=== PATIENT | female | born 1975 | race Caucasian/White ===

== ENCOUNTER 2017-02-21 14:17 | Emergency (ER) | payer SELFPAY ==
[2017-02-21 14:23] VITALS: BP 146/102
[2017-02-21] MEDS ORDERED: KETOROLAC TROMETHAMINE 60 MG/2 ML VIAL IM ONE (14:46)
--- NOTE | 2017-02-21 14:54 | ERNOTE ---
ENT HPI Date of Service: 02/21/17 Presenting Symptoms: dental pain Time Seen by Provider: 02/21/17 14:41 - Immun/Allergies/Home Medications Immunizations: IMMUNIZATION HX Immunizations Up to Date Yes History of Influenza Vaccine More Information Required Hx Pneumococcal Vaccination More Information Required Allergies/Adverse Reactions: Allergies Allergy/AdvReac Type Severity Reaction Status Date / Time clindamycin Allergy Verified 02/21/17 14:22 Home Medications: HOME MEDICATIONS Amitriptyline HCl [Elavil] 50 mg PO HS 09/17/15 [Last Taken Unknown] Atenolol [Tenormin] 100 mg PO DAILY 02/21/17 [Last Taken Unknown] Duloxetine HCl [Cymbalta] 60 mg PO DAILY 02/21/17 [Last Taken Unknown] Penicillin V Potassium [Pen-Vee K] 500 mg PO QID #40 tab 02/21/17 [Last Taken Unknown] amLODIPine BESYLATE [Norvasc] 5 mg PO DAILY 02/21/17 [Last Taken Unknown] oxyCODONE HCL/ACETAMINOPHEN [Percocet 5 MG/325 MG] 1 tab PO Q4H PRN #20 tab 01/03 [Last Taken Unknown] - History of Present Illness Narrative: Pt. comes in with c/o dental filling falling out last week and then the tooth started to hurt today when she was in air conditioning. Pt. states that she sought treatment from her dentist but they are not able to get her in until March. Pt. denies any fever, SOB, CP, NVD, but does state that she has not been able to eat or drink as much. Review of Systems - Review of Systems Constitutional: Present: no symptoms reported. Absent: recent illness, fever, chills, weakness, fatigue EYE: Present: no symptoms reported ENT: Present: other - dental pain R maxilla Respiratory: Present: no symptoms reported. Absent: shortness of breath, cough , wheezing Cardiology: Present: no symptoms reported. Absent: chest pain, palpitations, edema Gastrointestinal/Abdominal: Present: no symptoms reported Musculoskeletal: Present: no symptoms reported. Absent: back pain, joint pain Skin: Present: no symptoms reported Neurological: Present: no symptoms reported. Absent: headache, dizziness/light- headedness, numbness, tingling All Other Systems: All systems neg except as marked - Patient's Past Medical History Patient History - Medical: Chronic Pain Patient History - Cardiac/Respiratory: No pertinent hx Patient History - Cancer: No Hx of Cancer Patient History - Surgical Procedures: Back Surgery, , T & A Patient History - Other: None - Social History Living Situations: home Abuse History: No History of abuse Psych History: No pertinent hx Smoking Status: Current every day smoker Have you smoked in the past 12 months: Yes Alcohol Use: none Drug Use: none - Immunizations Immunizations Up to Date: Yes Hx Pneumococcal Vaccination: More Information Required to Determine History of Influenza Vaccine: More Information Required to Determine Physical Exam - Physical Exam General Appearance: Present: wd/wn, alert, no apparent distress Eye Exam: Normal inspection: bilateral, PERRL: bilateral, EOMI: bilateral Ears, Nose, Throat: Present: normal pharynx, other - R maxillary dental material loss Neck: Present: normal inspection, nontender. Absent: lymphadenopathy (R), lymphadenopathy (L) Respiratory: Present: no respiratory distress, normal breath sounds, no accessory muscle use, chest nontender, lungs clear Cardiovascular/Chest: Present: regular rate, rhythm, no murmur, normal peripheral pulses Back Exam: Present: normal inspection Extremity Exam: Present: normal inspection Neurological Exam: Present: alert, oriented, normal mood/affect, no motor/ sensory deficits Skin Exam: Present: normal color, warm/dry. Absent: pallor, skin rash ED Progress - Vital Signs Patient's Vital Signs:: I have reviewed the patient's vital signs. Vital Signs: Vital Signs 02/21/17 14:20 Temperature 36.4 C L Pulse Rate 116 H Respiratory 14 Rate Blood Pressure 146/102 O2 Sat by Pulse 99 Oximetry - Progress/Reassessment Chief Complaint: Dental Problem Departure Clinical Impression: Dental filling status, Fractured dental episcopal with loss of material - Departure Disposition: Home self-care Condition: Good Instructions: Dental Caries, [id number], Form - Excuse from Work, School, or Physical Activity Additional Instructions: Please follow up with dentist as directed arrive at 8 am tomorrow please take Ibuprofen up to 600mg every 6 hours as needed May take percocet if at home and able to rest. Prescriptions: Penicillin V Potassium [Pen-Vee K] 500 mg PO QID #40 tab oxyCODONE HCL/ACETAMINOPHEN [Percocet 5 MG/325 MG] 1 tab PO Q4H PRN #20 tab PRN Reason: Pain
--- OUTSIDE RECORDS SUMMARY | 2017-02-21 14:56 | XMS REPORT | Continuity of Care Document ---
:1975 Author Organization [facility] [place] [address] Care Team Providers Name Role Phone Kyara Garcia Robyn Primary Care Provider [phone] Source Comments This disclosure is being made pursuant to the [email or web address] program and maynot contain all information available regarding this patient.[facility] Active Allergies and Adverse Reactions Allergen Noted Date Severity Reactions Comments Clindamycin 12/26/2016 Headache Headaches and GI upset Tramadol 12/26/2016 Low Rash Current Medications Be aware that medications may not be up to date as of this document. Alwaysverify current medications with the patient. Prescription Sig. Disp. Refills Start Date End Date Status amLODIPine (NORVASC) 5 Take 5 mg by 11/27/2016 Active MG tablet mouth daily. hydrOXYzine (VISTARIL) Take 1 capsule 0 12/09/2016 Active 50 MG capsule by mouth nightly. amitriptyline (ELAVIL) Take 1 tablet by 1 12/09/2016 Active 50 MG tablet mouth nightly. ketorolac (TORADOL) 10 Take 10 mg by Active MG tablet mouth every 6 (six) hours as needed for Pain. cyclobenzaprine Take 10 mg by Active (FLEXERIL) 10 MG tablet mouth nightly as needed for Muscle spasms. acetaminophen-codeine Take 1 tablet by 0 11/22/2016 Active (TYLENOL #3) 300-30 MG mouth 2 (two) per tablet times daily. atenolol (TENORMIN) 100 Take 1 tablet by 30 tablet 1 12/26/2016 Active MG tablet mouth daily. 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 (Primary Dx); Essential hypertension 12/26/2016 Refill Family Medicine Schrepfer, Jenn, RN Social History Tobacco Use Types Packs/Day Years Used Date Current Every Day Smoker 0.25 Alcohol Use Drinks/Week oz/Week Comments Yes occ Last Filed Vital Signs Vital Sign Reading Time Taken Blood Pressure 154/102 12/26/2016 10:04 AM CDT Pulse 98 12/26/2016 10:04 AM CDT Temperature - - Respiratory Rate 16 12/26/2016 10:04 AM CDT Height - - Weight 99.338 kg (219 lb) 12/26/2016 10:04 AM CDT Body Mass Index - - Oxygen Saturation 98% 12/26/2016 10:04 AM CDT Plan of Care Patient Goal Type Goal Blood Pressure Blood Pressure below 140/90 Health Maintenance Due Date Last Done Comments Pneumococcal Medium Risk 19-64 yo (1 of 1 - PPSV23) 1996 Tetanus/Pertussis (1 - Tdap) 1996 Pap Smear 1998 Influenza Immunization (#1) 2016 Results from Last 3 Months XR HIP UNILAT 2/3 VIEWS W OR WO PELVIS (12/25/2016)XR LSPINE 3 VIEWS (12/25/2016 ) Insurance Payer Benefit Plan / Subscriber ID Type Phone Address Group [facility] [id number] Managed [phone] [address] [place], [place] [address] [phone] CALI Barcenas [id number]
== END 2017-02-21 15:07 | disposition home or self-care (01) ==
LOC: ER 14:17
DX: K08.531 Fractured dental restorative material with loss of material (principal)

== ENCOUNTER 2017-03-06 17:11 | Emergency (ER) | payer SELFPAY ==
[2017-03-06 17:17] VITALS: BP 134/84
--- NOTE | 2017-03-06 17:42 | ERNOTE ---
ENT HPI Date of Service: 03/06/17 Presenting Symptoms: dental pain Time Seen by Provider: 03/06/17 17:36 Source: patient - Immun/Allergies/Home Medications Immunizations: IMMUNIZATION HX Immunizations Up to Date Yes History of Influenza Vaccine Yes Hx Pneumococcal Vaccination No Allergies/Adverse Reactions: Allergies Allergy/AdvReac Type Severity Reaction Status Date / Time clindamycin Allergy Verified 02/21/17 14:22 Home Medications: HOME MEDICATIONS Amitriptyline HCl [Elavil] 50 mg PO HS 09/17/15 [Last Taken Unknown] Atenolol [Tenormin] 100 mg PO DAILY 02/21/17 [Last Taken Unknown] Duloxetine HCl [Cymbalta] 60 mg PO DAILY 02/21/17 [Last Taken Unknown] amLODIPine BESYLATE [Norvasc] 5 mg PO DAILY 02/21/17 [Last Taken Unknown] Amoxicillin 875 mg PO BID #20 tablet 03/06/17 [Last Taken Unknown] HYDROcodone/ACETAMINOPHEN [Hydrocodon-Acetaminophen 5-325] 1 - 2 tab PO Q6H PRN #20 tablet 03/06/17 [Last Taken Unknown] Lidocaine HCl [Lidocaine HCl Viscous 2%] 5 ml MM Q4H PRN #120 udc 03/06/17 [ Last Taken Unknown] - Pain Score Pain Score #1 Pain Score: 8 - History of Present Illness Narrative: 41yo, F, presents to ER with tooth pain to R. lower molar. Notes she was seen in early February for pain to the same tooth, started on abx and pain medication at that time. She followed up the next day with [facility] dental clinic, they recommended a root canal, which will take place in [place] "in March when students return". Today a piece of the tooth broke off while eating pistachios and now she is having increased pain. She has also noted a foul taste in her mouth today. Date (Duration): 03/06/17 Time (Timing): 08:00 ENT Location: Present: dental Modifying Factors - Worsens: Reports: other - eating, hot/cold liquids Associated Symptoms - ENT: Reports: tooth pain. Denies: fever, sore throat, drooling, nasal congestion/drainage, facial pain/swelling, jaw swelling Review of Systems - Review of Systems Constitutional: Absent: fever, chills, malaise ENT: Present: other - tooth pain. Absent: nose congestion, throat swelling Respiratory: Absent: shortness of breath Gastrointestinal/Abdominal: Absent: nausea, vomiting Skin: Absent: other - redness - Patient's Past Medical History Patient History - Medical: Chronic Pain Patient History - Cardiac/Respiratory: No pertinent hx Patient History - Cancer: No Hx of Cancer Patient History - Surgical Procedures: Back Surgery, , T & A Patient History - Other: None - Social History Living Situations: home Abuse History: No History of abuse Psych History: No pertinent hx Smoking Status: Current every day smoker Have you smoked in the past 12 months: Yes Patient requests Smoking Cessation Consult: No Alcohol Use: none Drug Use: none - Immunizations Immunizations Up to Date: Yes Hx Pneumococcal Vaccination: No History of Influenza Vaccine: Yes Physical Exam - Physical Exam General Appearance: Present: wd/wn, alert, no apparent distress Head Exam: Present: other - filling to #31 tooth broken below site of filling to lateral aspect of tooth, #30 broken to medial aspect, no fluctuance or erythema to gums. Absent: swelling - no facial swelling Neck: Present: nontender. Absent: lymphadenopathy (R), lymphadenopathy (L) Respiratory: Present: normal breath sounds, lungs clear. Absent: rales, rhonchi , wheezing Cardiovascular/Chest: Present: regular rate, rhythm, no murmur Skin Exam: Present: normal color, warm/dry ED Progress - Results and Orders Patient's Lab Results:: I have reviewed the patient's lab results. - Vital Signs Patient's Vital Signs:: I have reviewed the patient's vital signs. Vital Signs: Vital Signs 03/06/17 17:12 Temperature 36.5 C Pulse Rate 104 H Respiratory 14 Rate Blood Pressure 134/84 O2 Sat by Pulse 98 Oximetry - Progress/Reassessment Chief Complaint: Dental Problem Departure Clinical Impression: Pain, dental, Fractured dental religion with loss of material - Departure Disposition: Home self-care Condition: Good Instructions: Tooth Injuries, [id number] Additional Instructions: Avoid hot/cold foods and liquids as this may increase pain Follow up at [facility] tomorrow Prescriptions: Amoxicillin 875 mg PO BID #20 tablet HYDROcodone/ACETAMINOPHEN [Hydrocodon-Acetaminophen 5-325] 1 - 2 tab PO Q6H PRN #20 tablet PRN Reason: Pain Lidocaine HCl [Lidocaine HCl Viscous 2%] 5 ml MM Q4H PRN #120 udc PRN Reason: Pain
[2017-03-06] MEDS ORDERED: HYDROcodone/ACETAMINOPHEN 1 EACH TABLET PO ONE (17:48)
[2017-03-06] MEDS ORDERED: AMOX TR/POTASSIUM CLAVULANATE 875 MG TABLET PO ONE (17:48)
--- OUTSIDE RECORDS SUMMARY | 2017-03-06 17:53 | XMS REPORT | Continuity of Care Document ---
:1975 Author Organization [facility] Address [place] [address] Care Team Providers Name Role Phone Radha Kyara Carlson Primary Care Provider [phone] Source Comments This disclosure is being made pursuant to the [employer] program and maynot contain all information available regarding this patient.[facility] Active Allergies and Adverse Reactions Allergen Noted Date Severity Reactions Comments Clindamycin 12/26/2016 Headache Headaches and GI upset Tramadol 12/26/2016 Low Rash Current Medications Be aware that medications may not be up to date as of this document. Alwaysverify current medications with the patient. Prescription Sig. Disp. Refills Start Date End Date Status amLODIPine (NORVASC) Take 5 mg by 11/27/2016 Active 5 MG tablet mouth daily. hydrOXYzine Take 1 0 12/09/2016 Active (VISTARIL) 50 MG capsule by capsule mouth nightly. amitriptyline Take 1 tablet 1 12/09/2016 Active (ELAVIL) 50 MG tablet by mouth nightly. ketorolac (TORADOL) Take 10 mg by Active 10 MG tablet mouth every 6 (six) hours as needed for Pain. cyclobenzaprine Take 10 mg by Active (FLEXERIL) 10 MG mouth nightly tablet as needed for Muscle spasms. acetaminophen-codeine Take 1 tablet 0 11/22/2016 Active (TYLENOL #3) 300-30 by mouth 2 MG per tablet (two) times daily. atenolol (TENORMIN) TAKE ONE 30 tablet 3 02/27/2017 Active 100 MG tablet TABLET BY MOUTH ONCE DAILY atenolol (TENORMIN) Take 1 tablet 30 tablet 1 12/26/2016 Discontinued 100 MG tablet by mouth 7 daily. Active Problems No known active problems Most Recent Encounters Date Type Specialty Providers Description 02/24/2017 Refill Family Medicine Fadi Majano DO Essential hypertension 01/02/2017 Orders Only Provider, Not In System 12/26/2016 Office Visit Family Medicine Fadi Majano V, DO Chronic right- sided low back pain with right-sided sciatica (Primary Dx); Essential hypertension 12/26/2016 Refill Family Medicine Jenn Whitehead, RN Social History Tobacco Use Types Packs/Day [...] 1996 Pap Smear 1998 Influenza Immunization (#1) 2017 Results from Last 3 Months XR HIP UNILAT 2/3 VIEWS W OR WO PELVIS (12/25/2016)XR LSPINE 3 VIEWS (12/25/2016 ) Insurance Payer Benefit Plan / Subscriber ID Type Phone Address Group [facility] [id number] Managed [phone] [address] [place], [place] [id number] [phone] [place] [address]
[2017-03-06] MEDS ORDERED: AMOX TR/POTASSIUM CLAVULANATE 875 MG TABLET ONE (18:00)
[2017-03-06] MEDS ORDERED: HYDROcodone/ACETAMINOPHEN 1 EACH TABLET ONE (18:00)
[2017-03-06] MEDS ORDERED: LIDOCAINE HCL 20 ML UDC MM ONE (18:04)
== END 2017-03-06 18:25 | disposition home or self-care (01) ==
LOC: ER 17:11
DX: K08.531 Fractured dental restorative material with loss of material (principal); F17.210 Nicotine dependence, cigarettes, uncomplicated

== ENCOUNTER 2017-04-19 12:19 | Emergency (ER) | payer OTHER ==
[2017-04-19 12:44] VITALS: BP 139/107
[2017-04-19] MEDS ORDERED: LIDOCAINE HCL 20 ML UDC MM ONE (13:35)
--- NOTE | 2017-04-19 13:52 | ERNOTE ---
ENT HPI Date of Service: 04/19/17 Presenting Symptoms: dental pain Time Seen by Provider: 04/19/17 13:23 Source: patient, RN notes reviewed, other - [facility] Exam Limitations: no limitations - Immun/Allergies/Home Medications Immunizations: IMMUNIZATION HX Immunizations Up to Date Yes History of Influenza Vaccine No Hx Pneumococcal Vaccination No Allergies/Adverse Reactions: Allergies Allergy/AdvReac Type Severity Reaction Status Date / Time clindamycin Allergy Verified 04/19/17 12:44 Home Medications: HOME MEDICATIONS Amitriptyline HCl [Elavil] 50 mg PO HS 09/17/15 [Last Taken Unknown] Atenolol [Tenormin] 100 mg PO DAILY 02/21/17 [Last Taken Unknown] Duloxetine HCl [Cymbalta] 60 mg PO DAILY 02/21/17 [Last Taken Unknown] amLODIPine BESYLATE [Norvasc] 5 mg PO DAILY 02/21/17 [Last Taken Unknown] HYDROcodone/ACETAMINOPHEN [Hydrocodon-Acetaminophen 5-325] 1 - 2 tab PO Q6H PRN #20 tablet 03/06/17 [Last Taken Unknown] Penicillin V Potassium [Pen-Vee K] 500 mg PO Q8H #30 tab 04/19/17 [Last Taken Unknown] Sulfamethoxazole/Trimethoprim [Bactrim Ds] 1 tab PO BID 04/19/17 [Last Taken Unknown] oxyCODONE HCL/ACETAMINOPHEN [Oxycodone-Acetaminophen 5-325] 1 each PO Q6H PRN # 16 tablet 04/19/17 [Last Taken Unknown] - History of Present Illness Narrative: 41 y/o female ambulatory to the ED with dental pain. She was diagnosed with a dental abscess at the ER in [place]. She was given Chester and Bactrim and her pain has not improved. She reports that she needs a root canal but has to wait until her insurance becomes active. ENT Location: Present: dental Prearrival Treatment: Present: over the counter meds, prescription meds Prior Treament: Reports: recently seen, treated by physician, similar symptoms before, currently on antibiotics Review of Systems - Review of Systems Constitutional: Absent: fever, chills EYE: Present: no symptoms reported ENT: Absent: nose congestion, sore throat, throat swelling Respiratory: Absent: shortness of breath, cough Cardiology: Present: no symptoms reported Gastrointestinal/Abdominal: Absent: nausea Genitourinary: Present: no symptoms reported Musculoskeletal: Absent: muscle pain, neck pain Skin: Absent: rash, lesions, lumps Neurological: Absent: headache, dizziness/light-headedness Endocrine: Present: no symptoms reported Hematologic/Lymphatic: Absent: easy bruising, easy bleeding Psych: Present: no symptoms reported - Patient's Past Medical History Patient History - Medical: No pertinent hx Patient History - Cardiac/Respiratory: No pertinent hx Patient History - Cancer: No Hx of Cancer Patient History - Surgical Procedures: , T & A, Other Patient History - Other: None LMP (females 10-50): now - Social History Living Situations: home Abuse History: No History of abuse Psych History: No pertinent hx Smoking Status: Current every day smoker Have you smoked in the past 12 months: Yes Alcohol Use: none Drug Use: none - Immunizations Immunizations Up to Date: Yes Hx Pneumococcal Vaccination: No History of Influenza Vaccine: No Physical Exam - Physical Exam General Appearance: Present: wd/wn, alert, mild distress Head Exam: Present: tenderness - Right lower jaw. Absent: swelling Eye Exam: Normal inspection: bilateral Ears, Nose, Throat: Present: other - Old filling and decay present in right lower posterior molar with surrounding gingival inflammation. Absent: pharyngeal erythema, pharyngeal swelling, dry mucous membranes Respiratory: Present: no respiratory distress, normal breath sounds, no accessory muscle use, lungs clear Cardiovascular/Chest: Present: regular rate, rhythm, no murmur Extremity Exam: Present: normal inspection, normal range of motion Neurological Exam: Present: alert, oriented, normal mood/affect, no motor/ sensory deficits Skin Exam: Present: normal color, warm/dry ED Progress - Vital Signs Patient's Vital Signs:: I have reviewed the patient's vital signs. Vital Signs: Vital Signs 04/19/17 12:39 Temperature 35.1 C L Pulse Rate 92 Respiratory 16 Rate Blood Pressure 139/107 O2 Sat by Pulse 97 Oximetry - Progress/Reassessment Chief Complaint: Dental Problem Progress:: Unchanged Departure Clinical Impression: Dental abscess - Departure Disposition: Home Follow Up Needed Condition: Stable Instructions: Dental Abscess, [id number] Additional Instructions: Stop Bactrim and start PenVK Try Percocet instead of Chester Continue ibuprofen See dentist ROGELIO Prescriptions: oxyCODONE HCL/ACETAMINOPHEN [Oxycodone-Acetaminophen 5-325] 1 each PO Q6H PRN # 16 tablet PRN Reason: Pain Penicillin V Potassium [Pen-Vee K] 500 mg PO Q8H #30 tab
== END 2017-04-19 13:52 | disposition home or self-care (01) ==
LOC: ER 12:19
DX: K04.7 Periapical abscess without sinus (principal); F17.200 Nicotine dependence, unspecified, uncomplicated

== ENCOUNTER 2017-04-22 18:35 | Emergency (ER) | payer OTHER ==
[2017-04-22] MEDS ORDERED: LIDOCAINE HCL/EPINEPHRINE 50 ML VIAL IJ ONE (20:11)
[2017-04-22] MEDS ORDERED: BUPIVACAINE HCL 50 ML VIAL IJ ONE (20:11)
[2017-04-22] MEDS ORDERED: LIDOCAINE HCL/EPINEPHRINE 30 ML VIAL IJ ONE (20:13)
[2017-04-22 20:14] VITALS: BP 147/93
--- NOTE | 2017-04-22 20:20 | ERNOTE ---
ENT HPI Date of Service: 04/22/17 Time Seen by Provider: 04/22/17 20:03 - Immun/Allergies/Home Medications Immunizations: IMMUNIZATION HX Immunizations Up to Date Yes History of Influenza Vaccine No Hx Pneumococcal Vaccination No Allergies/Adverse Reactions: Allergies Allergy/AdvReac Type Severity Reaction Status Date / Time clindamycin Allergy Verified 04/22/17 20:13 Home Medications: HOME MEDICATIONS Amitriptyline HCl [Elavil] 50 mg PO HS 09/17/15 [Last Taken Unknown] Atenolol [Tenormin] 100 mg PO DAILY 02/21/17 [Last Taken Unknown] Duloxetine HCl [Cymbalta] 60 mg PO DAILY 02/21/17 [Last Taken Unknown] amLODIPine BESYLATE [Norvasc] 5 mg PO DAILY 02/21/17 [Last Taken Unknown] Penicillin V Potassium [Pen-Vee K] 500 mg PO Q8H #30 tab 04/19/17 [Last Taken Unknown] oxyCODONE HCL/ACETAMINOPHEN [Oxycodone-Acetaminophen 5-325] 1 each PO Q6H PRN # 16 tablet 04/19/17 [Last Taken Unknown] oxyCODONE HCL/ACETAMINOPHEN [Percocet 5 MG/325 MG] 1 - 2 tab PO Q4H PRN #24 tab 04/22/17 [Last Taken Unknown] - History of Present Illness Narrative: This is a 41-year-old female who comes to the emergency department complaining of right jaw and facial pain. The patient was told a few days ago in the emergency department that she had an abscess on one of her teeth on the right lower. The patient says she's been taking antibiotics and that she has been using pain medicine but this has not been helping. She said previous to this she has been using the pain medicine, Percocet, and it has been working. The patient notes that earlier today she had a piece of the tooth fall off. Patient denies fever chills difficulty swallowing or any other complaints. Her complaint is pain. She has not made an appointment with a dentist. She has been having trouble with her teeth for several months. Review of Systems - Review of Systems Constitutional: Present: no symptoms reported EYE: Present: no symptoms reported ENT: Present: other - dental pain Respiratory: Present: no symptoms reported Cardiology: Present: no symptoms reported Gastrointestinal/Abdominal: Present: no symptoms reported Genitourinary: Present: no symptoms reported Musculoskeletal: Present: no symptoms reported Skin: Present: no symptoms reported Neurological: Present: no symptoms reported Endocrine: Present: no symptoms reported Hematologic/Lymphatic: Present: no symptoms reported Psych: Present: no symptoms reported - Patient's Past Medical History Patient History - Medical: No pertinent hx Patient History - Cardiac/Respiratory: No pertinent hx Patient History - Cancer: No Hx of Cancer Patient History - Surgical Procedures: , T & A, Other Patient History - Other: None - Social History Living Situations: home Abuse History: No History of abuse Psych History: No pertinent hx Alcohol Use: none Drug Use: none - Immunizations Immunizations Up to Date: Yes Hx Pneumococcal Vaccination: No History of Influenza Vaccine: No Physical Exam - Physical Exam General Appearance: Absent: other - tearful woman holding her jaw speaking in full sentences Head Exam: Present: normal inspection, no evidence of injury Eye Exam: Normal inspection: bilateral, PERRL: bilateral, EOMI: bilateral Ears, Nose, Throat: Present: other - patient has a fracture of the first molar in the right lower. This is the posterior part. There is some avulsion of part of the tooth. Mild pain to percussion. No swelling of the surrounding tissue Neck: Present: normal inspection, nontender Respiratory: Present: no respiratory distress, no accessory muscle use, lungs clear Cardiovascular/Chest: Present: regular rate, rhythm, no murmur, normal peripheral pulses Gastrointestinal/Abdominal: Present: normal bowel sounds, nondistended, soft Extremity Exam: Present: normal inspection, non-tender, normal range of motion Neurological Exam: Present: alert, oriented, normal mood/affect Skin Exam: Present: normal color, warm/dry Lymphatic Exam: Present: no adenopathy ED Progress - Vital Signs Patient's Vital Signs:: I have reviewed the patient's vital signs. - Progress/Reassessment Chief Complaint: Dental Problem Procedures Comments: 10 mL of 1:1 solution of 0.5% Marcaine and 2% lidocaine with epinephrine was prepared. This was injected as a right inferior alveolar nerve block. Patient tolerated procedure well. Had almost immediate pain relief. Departure Clinical Impression: Dentalgia - Departure Disposition: Home self-care Condition: Good Instructions: Dental Abscess, [id number] Additional Instructions: As we have discussed, it is certainly possible that you have an abscess however without x-rays which were performed by her dentist this cannot be verified. I have used some local anesthetic to numb up the tooth. He should have no further pain for at least 4 hours and it may lost last as long as 12 hours. Continue taking her previously prescribed antibiotics. Continued take Percocet as needed for severe pain. Call a dentist and set up a follow-up appointment. He should be able to get x- rays done for relatively little money. Many dentists have a free early initial exam. Extremities start developing a fever, face turning red, significant swelling to her face surrounding a new concerning symptoms she should return to the ER. Prescriptions: oxyCODONE HCL/ACETAMINOPHEN [Percocet 5 MG/325 MG] 1 - 2 tab PO Q4H PRN #24 tab PRN Reason: Pain
== END 2017-04-22 20:24 | disposition home or self-care (01) ==
LOC: ER 18:35
PROC: 3E0T3BZ Introduction of Anesthetic Agent into Peripheral Nerves and Plexi, Percutaneous Approach (ICD-10-PCS; principal; 2017-04-22)
DX: K08.89 Other specified disorders of teeth and supporting structures (principal)

== ENCOUNTER 2017-06-02 14:41 | Emergency (ER) | payer OTHER ==
[2017-06-02] MEDS ORDERED: KETOROLAC TROMETHAMINE 30 MG/ML VIAL IV ONE (15:00)
[2017-06-02] MEDS ORDERED: ONDANSETRON HCL/PF 2 MG/ML VIAL IV ONE (15:00)
[2017-06-02] MEDS ORDERED: ONDANSETRON HCL/PF 2 MG/ML VIAL ONE (15:01)
[2017-06-02] MEDS ORDERED: KETOROLAC TROMETHAMINE 30 MG/ML VIAL ONE (15:02)
[2017-06-02 15:16] LABS: Hemoglobin 13.3 gm/dL (12.5-16.0); Mean Cell Volume 89.7 fl (78-100); Mean Corpuscular Hemoglobin 30.6 pg (27-31); Mean Corpuscular Hgb Conc 34.1 g/dl (32-36); Mean Platelet Volume 8.6 fl (6.0-9.5); Neutrophil # 4.5 K/mm3 (1.3-6.0); Neutrophil % 52.7 % (42-75.0); Platelet Count 356 K/mm3 (150-450); Red Blood Count 4.35 M/mm3 (4.2-5.4); Red Cell Distribution Width 12.5 % (11.5-14.0); White Blood Count 8.5 K/mm3 (4.0-10.5)
--- NOTE | 2017-06-02 15:17 | ERNOTE ---
Abdominal HPI - Narrative Date of Service: 06/02/17 - General Chief Complaint: Abdominal Pain Time Seen by Provider: 06/02/17 14:53 Source: patient Exam Limitations: no limitations - Immun/Allergies/Home Medications Immunizatons: IMMUNIZATION HX Immunizations Up to Date Yes History of Influenza Vaccine No Hx Pneumococcal Vaccination No Allergies/Adverse Reactions: Allergies clindamycin Allergy (Verified 06/02/17 14:52) Home Medications: HOME MEDICATIONS Amitriptyline HCl [Elavil] 50 mg PO HS 09/17/15 [Last Taken Unknown] Duloxetine HCl [Cymbalta] 60 mg PO DAILY 02/21/17 [Last Taken Unknown] amLODIPine BESYLATE [Norvasc] 5 mg PO DAILY 02/21/17 [Last Taken Unknown] Carvedilol [Coreg] 25 mg PO BID 06/02/17 [Last Taken Unknown] Dicyclomine HCl [Bentyl] 10 mg PO TID #30 capsule 06/02/17 [Last Taken Unknown] Hydroxyzine HCl 50 mg PO TID PRN 06/02/17 [Last Taken Unknown] Nabumetone 750 mg PO BID 06/02/17 [Last Taken Unknown] Pantoprazole Sodium 40 mg PO DAILY 06/02/17 [Last Taken Unknown] buPROPion HCL [Wellbutrin] 100 mg PO DAILY 06/02/17 [Last Taken Unknown] - History of Present Illness Narrative: Pt. comes in with c/o L flank pain for a week. Pt. went to her PCP two days ago and was not diagnosed with anything after undergoing a urine culture, and pelvic ultrasound. Pt. denies any fevers, SOB, CP, vomiting, diarrhea, alleviating factors but states that movement exacerbates the pain and that she has been diagnosed with an enlarged kidney and is nauseated. Review of Systems - Review of Systems Constitutional: Present: no symptoms reported. Absent: recent illness, fever, chills, weakness, fatigue, malaise EYE: Present: no symptoms reported ENT: Present: no symptoms reported Respiratory: Present: no symptoms reported. Absent: shortness of breath, cough , wheezing Cardiology: Present: no symptoms reported. Absent: chest pain, palpitations, edema Gastrointestinal/Abdominal: Present: nausea, abdominal pain. Absent: vomiting, diarrhea Genitourinary: Present: pain - L flank. Absent: dysuria, decreased urinary output Musculoskeletal: Present: back pain - L flank. Absent: joint pain Skin: Present: no symptoms reported Neurological: Present: no symptoms reported. Absent: anxiety, headache, numbness, tingling All Other Systems: All systems neg except as marked - Patient's Past Medical History Patient History - Medical: No pertinent hx, Anxiety, Depression Patient History - Cardiac/Respiratory: Hypertension Patient History - Cancer: No Hx of Cancer Patient History - Surgical Procedures: , Tubal Ligation, T & A, Other Patient History - Other: None LMP (females 10-50): 1 month - Social History Living Situations: home Abuse History: No History of abuse Psych History: No pertinent hx, Hx of Anxiety, Hx of Depression Smoking Status: Current every day smoker Have you smoked in the past 12 months: Yes Alcohol Use: rarely Drug Use: none - Immunizations Immunizations Up to Date: Yes Hx Pneumococcal Vaccination: No History of Influenza Vaccine: No Physical Exam - Physical Exam General Appearance: Present: wd/wn, alert, no apparent distress Head Exam: Present: normal inspection, no evidence of injury Eye Exam: Normal inspection: bilateral, PERRL: bilateral, EOMI: bilateral Ears, Nose, Throat: Present: normal ENT inspection, normal pharynx Neck: Present: normal inspection, nontender. Absent: lymphadenopathy (R), lymphadenopathy (L) Respiratory: Present: no respiratory distress, normal breath sounds, no accessory muscle use, chest nontender, lungs clear Cardiovascular/Chest: Present: regular rate, rhythm, no murmur, normal peripheral pulses Gastrointestinal/Abdominal: Present: normal bowel sounds, nondistended, soft, no organomegaly, tenderness - LUQ LLQ, mass - L lateral side Back Exam: Present: normal range of motion, no vertebral tenderness, CVA tenderness (L) Extremity Exam: Present: normal inspection, non-tender, normal range of motion, no edema Neurological Exam: Present: alert, oriented, normal mood/affect, no motor/ sensory deficits Skin Exam: Present: normal color, warm/dry. Absent: pallor, skin rash ED Progress - Date and Time Seen: Date and Time: 06/02/17 15:[address] Marcial and she recommends getting emergent CT scan as pt. has negative flat and upright plain film and negative labs with no answer for pt. symptoms. 06/02/17 16:49 It appears to me that mass that is felt on pt L side is likely bowel or spleen 06/02/17 17:[address] Cast and while pt. likely does not have spleenomegaly bioth spleen and bowel loop are close to surface. - Results and Orders Patient's Lab Results:: I have reviewed the patient's lab results. - Vital Signs Patient's Vital Signs:: I have reviewed the patient's vital signs. Vital Signs: Vital Signs 06/02/17 14:46 Temperature 36.6 C Pulse Rate 95 Respiratory 16 Rate Blood Pressure 146/103 O2 Sat by Pulse 98 Oximetry - CT/Ultrasound CT/Ultrasound Narrative: CT abd pelvis not notable for any renal stones and under indication states rule out kidney stomne however am more concerned about mass on L side so will disuss with Dr cast. - Progress/Reassessment Chief Complaint: Abdominal Pain Progress:: Improved Departure Clinical Impression: Abdominal pain Qualifiers: Abdominal location: left upper quadrant Qualified Code(s): R10.12 - Left upper quadrant pain - Departure Disposition: Home self-care Condition: Good Instructions: Abdominal Pain, Adult, [id number] Additional Instructions: Please follow up with primary provider in 2-3 days Prescriptions: Dicyclomine HCl [Bentyl] 10 mg PO TID #30 capsule
[2017-06-02 15:22] LABS: Urine Color Yellow
[2017-06-02 15:24] LABS: Urine Appearance Clear; Urine Bacteria None Seen; Urine Bilirubin Negative (NEGATIVE); Urine Blood Negative /ul (NEGATIVE); Urine Ketone Negative (NEGATIVE); Urine Nitrite Negative (NEGATIVE); Urine Protein Negative (NEGATIVE); Urine RBC None Seen /hpf (0-5); Urine Specific Gravity 1.025 SP.GR. (1.005-1.010); Urine Urobilinogen Normal (NORMAL); Urine WBC None Seen /hpf (0-5)
[2017-06-02 15:32] LABS: Cocaine Ur Negative (NEGATIVE); Urine Barbiturate Negative (NEGATIVE); Urine Benzodiazepines Negative (NEGATIVE); Urine Opiates Negative (NEGATIVE); Urine PCP Negative (NEGATIVE); Urine THC Negative (NEGATIVE)
[2017-06-02 15:33] LABS: Albumin * 4.3 gm/dl (3.4-5.0); Anion Gap 11.5 mmol/L (6.8-13.8); BUN/Creatinine Ratio 23.6 (9.0-21.6); Bilirubin, Total 0.3 mg/dL (0.0-1.1); Ca. Corrected For Albumin 8.6 mg/dL (8.4-10.2); Calcium * 9.2 mg/dL (7.9-10.9); Carbon Dioxide 29.4 mmol/L (24-32.6); Potassium 3.9 mmol/L (3.4-4.6); Total Protein 8.5 gm/dL (6.2-8.2)
[2017-06-02 17:26] VITALS: BP 111/62
== END 2017-06-02 17:24 | disposition home or self-care (01) ==
LOC: ER 14:41
DX: R10.12 Left upper quadrant pain (principal); F17.200 Nicotine dependence, unspecified, uncomplicated
CPT/HCPCS: 36415; 74020; 74176; 80053; 80307; 81001; 85025; 86308; 96374; 96375; 99285; J2405